=== PATIENT | male | born 1995 | race Caucasian/White ===

== ENCOUNTER 2017-03-04 16:32 | Emergency (ER) | payer SELFPAY ==
[~2017-03-04 16:32] MED LIST: Sodium Chloride Irrig Solution 250 ML BOT ONE
[2017-03-04] MEDS ORDERED: Naproxen 500 MG TAB ONE (17:54)
[2017-03-04] MEDS ORDERED: HYDROcodone/Acetaminophen 10/325 mg Tablet ONE (17:54)
[2017-03-04] MEDS ORDERED: Cephalexin 500 MG CAP ONE (17:54)
== END 2017-03-04 18:10 | disposition home or self-care (01) ==
LOC: MADERS 16:32
DX: S61.215A Laceration without foreign body of left ring finger without damage to nail, initial encounter (principal); S61.213A Laceration without foreign body of left middle finger without damage to nail, initial encounter; F31.9 Bipolar disorder, unspecified; W25.XXXA Contact with sharp glass, initial encounter
CPT/HCPCS: 12001; J2001